=== PATIENT | male | born 1980 | race Two or more races ===

== ENCOUNTER 2018-10-21 23:42 | Emergency (ER) | payer SELFPAY ==
[~2018-10-21] VITALS: Ht 185.4 cm; Wt 95.3 kg
--- NOTE | 2018-10-21 23:55 | NUR ---
Pt [facility] FOUND OUTSIDE OF [facility] +ETOH. Pt IS ASLEEP & NONVERBAL AT THIS TIME DUE TO ALCOHOL INTOXICATION. Pt IS RESPONSIVE TO STERNAL RUB, Pt OPENS HIS EYES & GRUNTS THEN GOES BACK TO SLEEP. UNABLE TO ANSWER SIMPLE YES & NO QUESTIONS. UNABLE TO SAY HIS NAME AT THIS TIME. Pt ON MONITOR. WILL CONTINUE TO MONITOR Pt's CONDITON & SAFETY.
--- NOTE | 2018-10-22 00:01 | NUR ---
Pt TAKEN FOR CT OF HEAD
--- NOTE | 2018-10-22 00:20 | NUR ---
Pt BACK FROM CT
[2018-10-22] MEDS ORDERED: HALOPERIDOL LACTATE INJ 5 MG/ML VIAL ONE (02:56)
[2018-10-22] MEDS ORDERED: HALOPERIDOL LACTATE INJ 5 MG/ML VIAL IM ONE (03:00)
--- NOTE | 2018-10-22 03:30 | NUR ---
Pt STILL ASLEEP IN BED. NO S/S OF ACUTE DISTRESS OR SOB NOTED. VS STABLE.
--- NOTE | 2018-10-22 07:15 | NUR ---
ENDORSED TO [facility] FOR Pt's DIMITRIOS.
[2018-10-22 14:36] VITALS: BP 135/88
--- NOTE | 2018-10-22 14:38 | NUR ---
Patient given written and verbal discharge instructions. Patient verbalizes understanding of instructions. Patient is ambulatory with steady gait. Refuses offer of correction placement. Patient given list of available shelters in surrounding area.
== END 2018-10-22 14:37 | disposition home or self-care (01) ==
LOC: EDBD 23:46 → ER 23:46
DX: S00.81XA Abrasion of other part of head, initial encounter (principal); F10.129 Alcohol abuse with intoxication, unspecified; X58.XXXA Exposure to other specified factors, initial encounter; Y93.89 Activity, other specified; Y92.89 Other specified places as the place of occurrence of the external cause; Y99.8 Other external cause status; Y90.9 Presence of alcohol in blood, level not specified
CPT/HCPCS: 70450; 82962; 96372; 99284; J1630